=== PATIENT | female | born 1965 | race Caucasian/White ===

== ENCOUNTER 2023-07-01 03:39 | Emergency (ER) | payer OTHER ==
[2023-07-01] MEDS ORDERED: Ondansetron ODT 4 MG TAB ONE (03:54)
[2023-07-01] MEDS ORDERED: Haloperidol 1 MG TAB ONE (05:10)
[2023-07-01] MEDS ORDERED: Mag-Al 1200 mg/1200 mg/30 ML UDCUP ONE (05:11)
[2023-07-01] MEDS ORDERED: Lidocaine 2% Viscous Solution 10 ML, Aluminum & Magnesium Hydroxide 30 ML SSW SCH (06:00)
== END 2023-07-01 06:22 | disposition home or self-care (01) ==
LOC: ERS 03:39
DX: R11.2 Nausea with vomiting, unspecified (principal); I10 Essential (primary) hypertension
CPT/HCPCS: 93005; Q0162